=== PATIENT | female | born 1985 | race Asian ===

== ENCOUNTER 2016-12-08 14:00 | Inpatient (IN) | payer SELFPAY ==
[~2016-12-08] VITALS: Ht 165.1 cm; Wt 63.5 kg
[2016-12-08] MEDS ORDERED: LACTATED RINGERS 1,000 ML IV SCH (15:03)
[2016-12-08 15:53] LABS: BASOPHILS # (AUTO) 0.1 K/uL (0.00-0.22); BASOPHILS % (AUTO) 1.2 % (0.0-2.0); EOSINOPHILS # (AUTO) 0.1 K/uL (0-0.4); EOSINOPHILS % (AUTO) 0.9 % (0.0-4.0); HEMATOCRIT 36.5 % (36-48); HEMOGLOBIN 12.2 g/dL (12.0-16.0); LYMPHOCYTES # (AUTO) 1.8 K/uL (2.5-16.5); LYMPHOCYTES % (AUTO) 21.7 % (20.5-51.1); MEAN CORPUSCULAR HEMOGLOBIN 33 pg (27-31); MEAN CORPUSCULAR HGB CONC 33 g/dL (33-37); MEAN CORPUSCULAR VOLUME 99 fL (80-94); MONOCYTES # (AUTO) 0.5 K/uL (0.8-1.0); MONOCYTES % (AUTO) 5.7 % (1.7-9.3); NEUTROPHILS # (AUTO) 5.6 K/uL (1.8-7.7); NEUTROPHILS % (AUTO) 70.5 % (42.2-75.2); PLATELET COUNT (AUTO) 133 K/uL (140-450); RED BLOOD CELL COUNT(AUTO) 3.69 MIL/uL (4.20-5.40); RED CELL DISTRIBUTION WIDTH 15.1 % (11.6-13.7); WHITE BLOOD COUNT (AUTO) 8.1 K/uL (4.8-10.8)
[2016-12-08 16:03] LABS: APPEARANCE,URINE CLEAR (CLEAR); BILIRUBIN,URINE NEGATIVE (NEGATIVE); BLOOD, URINE NEGATIVE (NEGATIVE); COLOR,URINE YELLOW (YELLOW); LEUKOCYTE ESTERASE ,URINE NEGATIVE (NEGATIVE); NITRITE, URINE NEGATIVE (NEGATIVE); PH,URINE 6.5 (5.0-9.0); UGLUCOSE NEGATIVE (NEGATIVE)
[2016-12-08 17:58] VITALS: BP 107/69
[2016-12-08] MEDS ORDERED: OXYTOCIN 10 UNITS/ML VIAL ONE (18:42)
[2016-12-08] MEDS ORDERED: METHYLERGONOVINE 0.2 MG/ML AMP ONE (18:43)
[2016-12-08] MEDS ORDERED: TRIAMCINOLONE 10 MG/ML 5ML VIAL ONE (18:43)
[2016-12-08] MEDS ORDERED: ONDANSETRON 4 MG/2 ML VIAL ONE (19:30)
[2016-12-08] MEDS ORDERED: BUPIVACAINE-MPF 0.75% 10 ML VIAL INJ ONE (19:30)
[2016-12-08] MEDS ORDERED: BETAMETH ACET/BETAMETH NA PH 30 MG/5 ML VIAL IM SCH (19:30)
[2016-12-08] MEDS ORDERED: BETAMETH ACET/BETAMETH NA PH 30 MG/5 ML VIAL IM ONE (19:33)
[2016-12-08] MEDS ORDERED: ceFAZolin 1,000 MG VIAL IVP ONE (19:34)
[2016-12-08] MEDS ORDERED: CITRIC ACID/SODIUM CITRATE 30 ML UDC ONE (19:37)
[2016-12-08] MEDS ORDERED: fentaNYL 0.05 MG/ML VIAL ONE (19:40)
[2016-12-08] MEDS ORDERED: MIDAZOLAM 2 MG/2 ML VIAL ONE (19:40)
[2016-12-08] MEDS ORDERED: MORPHINE PRES FREE 10 MG/10 ML AMP IV ONE (19:41)
[2016-12-08] MEDS ORDERED: KETAMINE 500 MG/5 ML VIAL ONE (19:41)
[2016-12-08] MEDS ORDERED: ONDANSETRON 4 MG/2 ML VIAL IVP PRN (20:15)
[2016-12-08] MEDS ORDERED: CITRIC ACID/SODIUM CITRATE 30 ML UDC PO SCH (20:15)
[2016-12-08] MEDS ORDERED: KETOROLAC 30 MG/ML VIAL IVP PRN (20:15)
[2016-12-08] MEDS ORDERED: diphenhydrAMINE 50 MG/ML VIAL IVP PRN (20:15)
[2016-12-08] MEDS ORDERED: TEMAZEPAM 15 MG CAP PO PRN (20:20)
[2016-12-08] MEDS ORDERED: MEASLES, MUMPS, AND RUBELLA 1 VIAL SQVAC PRN (20:20)
[2016-12-08] MEDS ORDERED: METHYLERGONOVINE 0.2 MG/ML AMP IM PRN (20:20)
[2016-12-08] MEDS ORDERED: HYDROcodone/APAP 5/325 MG 1 TAB TAB PO PRN (20:20)
[2016-12-08] MEDS ORDERED: TRIMETHOBENZAMIDE 200 MG/2 ML SYR IM PRN (20:20)
[2016-12-08] MEDS ORDERED: OXYTOCIN 20 UNITS/LR PREMIX 1,000 ML IV ONE (20:43)
[2016-12-08] MEDS: OXYTOCIN 20 UNITS/LR PREMIX 1,000 ML IV SCH ×2 (20:49→21:27)
[2016-12-08] MEDS ORDERED: diphenhydrAMINE 50 MG/ML VIAL ONE (21:01)
[2016-12-09] MEDS: OXYTOCIN 20 UNITS/LR PREMIX 1,000 ML IV SCH ×2 (05:09→13:55)
[2016-12-09 06:02] LABS: BASOPHILS % (AUTO) 0.3 % (0.0-2.0); EOSINOPHILS # (AUTO) 0.2 K/uL (0-0.4); EOSINOPHILS % (AUTO) 1.1 % (0.0-4.0); HEMATOCRIT 33.3 % (36-48); HEMOGLOBIN 11.1 g/dL (12.0-16.0); LYMPHOCYTES # (AUTO) 0.7 K/uL (2.5-16.5); LYMPHOCYTES % (AUTO) 4.4 % (20.5-51.1); MEAN CORPUSCULAR HEMOGLOBIN 33 pg (27-31); MEAN CORPUSCULAR HGB CONC 34 g/dL (33-37); MEAN CORPUSCULAR VOLUME 98 fL (80-94); MONOCYTES # (AUTO) 0.3 K/uL (0.8-1.0); MONOCYTES % (AUTO) 1.6 % (1.7-9.3); NEUTROPHILS # (AUTO) 15.4 K/uL (1.8-7.7); NEUTROPHILS % (AUTO) 92.6 % (42.2-75.2); PLATELET COUNT (AUTO) 136 K/uL (140-450); WHITE BLOOD COUNT (AUTO) 16.6 K/uL (4.8-10.8)
[2016-12-09] MEDS: SODIUM PHOSPHATE 118 ML ENEM RC SCH (09:00)
[2016-12-09] MEDS: BISACODYL 10 MG SUPP RC SCH (09:00)
--- NOTE | 2016-12-09 09:04 | NUR ---
PATIENT HAS BEEN SCREENED AND CATEGORIZED LOW NUTRITION RISK. PATIENT WILL BE SEEN WITHIN 7 DAYS OF ADMISSION. 12/15/[address]
[2016-12-09] MEDS: DOCUSATE SOD/SENNA 50/8.6 MG 1 TAB PO SCH (20:56)
[2016-12-09] MEDS ORDERED: IBUPROFEN 800 MG TAB PO PRN (23:55)
[2016-12-09] MEDS ORDERED: BETHANECHOL 25 MG TAB PO PRN (23:55)
[2016-12-10] MEDS: SIMETHICONE 80 MG TAB.CHEW PO PRN ×2 (08:35→21:05)
[2016-12-10] MEDS: oxyCODONE/APAP 5/325 MG 1 TAB TAB PO PRN ×3 (08:36→21:06)
[2016-12-10] MEDS: SODIUM PHOSPHATE 118 ML ENEM RC SCH (09:00)
[2016-12-10] MEDS: BISACODYL 10 MG SUPP RC SCH (09:00)
[2016-12-10 10:34] LABS: RAPID PLASMA REAGIN NON-REACTIVE (Non Reactiv)
[2016-12-10] MEDS: DOCUSATE SOD/SENNA 50/8.6 MG 1 TAB PO SCH (21:06)
[2016-12-11] MEDS ORDERED: BISACODYL 5 MG TABEC PO PRN (08:00)
[2016-12-11] MEDS: SIMETHICONE 80 MG TAB.CHEW PO PRN (09:17)
[2016-12-11] MEDS: oxyCODONE/APAP 5/325 MG 1 TAB TAB PO PRN (09:18)
== END 2016-12-11 14:50 | disposition home or self-care (01) | DRG 765 ==
LOC: MLD 14:00 → MFCC 12-09 03:53
PROVIDERS: ADMIT Obstetrics & Gynecology; ATTEND Obstetrics & Gynecology
PROC: 10D00Z1 Extraction of Products of Conception, Low, Open Approach (ICD-10-PCS; principal; 2016-12-08 19:30)
PROC: 3E0234Z Introduction of Serum, Toxoid and Vaccine into Muscle, Percutaneous Approach (ICD-10-PCS; 2016-12-11)
DX: O60.14X0 Preterm labor third trimester with preterm delivery third trimester, not applicable or unspecified (principal); O30.003 Twin pregnancy, unspecified number of placenta and unspecified number of amniotic sacs, third trimester; Z37.2 Twins, both liveborn; O32.1XX2 Maternal care for breech presentation, fetus 2; Z3A.36 36 weeks gestation of pregnancy; Z23 Encounter for immunization
CPT/HCPCS: 36415; 51702; 81003; 85025; 86592; 86886; 86900; 86901; 90715; J0690; J0702; J1200; J2210; J2250; J2270; J2405; J2590; J3010; J3301; J3490; J7060; J7120